=== PATIENT | female | born 1990 | race Two or more races ===

== ENCOUNTER 2024-10-31 17:51 | Observation (INO) | payer MEDICAID, SELFPAY ==
[2024-10-31] VITALS (12 sets, daily range): BP systolic 120–122; BP diastolic 76–77; PULSE 67–83; RESP 16–99; TEMP 36.8; O2SAT 98–100
== END 2024-10-31 19:25 | disposition home or self-care (01) ==
PROVIDERS: Admitting Provider Student in an Organized Health Care Education/Training Program; Visit Provider Student in an Organized Health Care Education/Training Program
DX: Z34.83 Encounter for supervision of other normal pregnancy, third trimester (principal); Z36.89 Encounter for other specified antenatal screening; Z3A.36 36 weeks gestation of pregnancy
CPT/HCPCS: 59025; 59899

== ENCOUNTER 2024-11-01 09:20 | Outpatient (CLI) | payer MEDICAID, SELFPAY ==
[2024-11-01] VITALS (10 sets, daily range): BP systolic 121; BP diastolic 77; PULSE 57–78; RESP 18–99; TEMP 36.7; O2SAT 93–100; BMI 32.8
--- NOTE | 2024-11-01 09:32 | XR_ITS ---
Examination: Biophysical profile, ultrasound Date and time of exam: November 01, 2019 5:10 AM INDICATIONS: Diagnosis maternal obesity, diagnosis poor reproductive history Technique: Multiple transabdominal sonographic images of the pelvis abdomen obtained. Attention is directed to the breathing movement, gross body movement, amniotic fluid volume and tone. Findings: Amniotic fluid index 10.6 cm Total biophysical profile is 8 of 8. breathing movement is 2. Gross body movement is 2. tone is 2. Qualitative amniotic fluid volume is 2 Impression: Biophysical profile is 8 of 8.
== END 2024-11-01 10:35 | disposition home or self-care (01) ==
LOC: S4S1 09:22 → S4SX 09:23
PROVIDERS: PCP Family Medicine; Referring Provider Student in an Organized Health Care Education/Training Program; Visit Provider Student in an Organized Health Care Education/Training Program
DX: O99.213 Obesity complicating pregnancy, third trimester (principal); E66.9 Obesity, unspecified; Z3A.36 36 weeks gestation of pregnancy
CPT/HCPCS: 59025; 76819

== ENCOUNTER 2024-11-18 10:57 | Outpatient (RCR) | payer MEDICAID, SELFPAY ==
--- NOTE | 2024-09-30 15:35 | XR_ITS ---
Examination: Biophysical profile, ultrasound Date and time of exam: September 30, 2024 1540 hours INDICATIONS: History C-sections Technique: Multiple transabdominal sonographic images of the pelvis abdomen obtained. Attention is directed to the breathing movement, gross body movement, amniotic fluid volume and tone. Findings: Amniotic fluid index 9.8 cm Total biophysical profile is 8 of 8. breathing movement is 2. Gross body movement is 2. tone is 2. Qualitative amniotic fluid volume is 2 Impression: Biophysical profile is 8 of 8.
[2024-09-30 16:18] VITALS: BP 108/58; PULSE 68; RESP 16; TEMP 36.7
--- NOTE | 2024-10-03 15:32 | XR_ITS ---
Examination: Biophysical profile, ultrasound Date and time of exam: October 03, 2024 1536 hours INDICATIONS: History Technique: Multiple transabdominal sonographic images of the pelvis abdomen obtained. Attention is directed to the breathing movement, gross body movement, amniotic fluid volume and tone. Findings: Amniotic fluid index 6.4 cm Total biophysical profile is 8 of 8. breathing movement is 2. Gross body movement is 2. tone is 2. Qualitative amniotic fluid volume is 2 Impression: Biophysical profile is 8 of 8.
[2024-10-03 16:05] VITALS: BP 116/59; PULSE 74; RESP 16; TEMP 36.9
--- NOTE | 2024-10-10 15:36 | XR_ITS ---
Examination: Biophysical profile, ultrasound Date and time of exam: October 10, 2024 1543 hours INDICATIONS: History C-sections, history low amniotic fluid index Technique: Multiple transabdominal sonographic images of the pelvis abdomen obtained. Attention is directed to the breathing movement, gross body movement, amniotic fluid volume and tone. Findings: Amniotic fluid index 6.4 cm Total biophysical profile is 8 of 8. breathing movement is 2. Gross body movement is 2. tone is 2. Qualitative amniotic fluid volume is 2 Impression: Biophysical profile is 8 of 8.
[2024-10-10 16:46] VITALS: BP 100/58; PULSE 74; RESP 16; TEMP 36.8
--- NOTE | 2024-10-14 15:51 | XR_ITS ---
Examination: Biophysical profile, ultrasound Date and time of exam: October 14, 2024 1542 hours INDICATIONS: History C-sections, history low amniotic fluid Technique: Multiple transabdominal sonographic images of the pelvis abdomen obtained. Attention is directed to the breathing movement, gross body movement, amniotic fluid volume and tone. Findings: Amniotic fluid index 10.5 cm Total biophysical profile is 8 of 8. breathing movement is 2. Gross body movement is 2. tone is 2. Qualitative amniotic fluid volume is 2 Impression: Biophysical profile is 8 of 8.
[2024-10-14 16:23] VITALS: BP 118/70; PULSE 75; RESP 16; TEMP 36.8
--- NOTE | 2024-10-17 15:53 | XR_ITS ---
Examination: Biophysical profile, ultrasound Date and time of exam: October 17, 2024 1556 hours INDICATIONS: History C-sections, history low amniotic fluid index Technique: Multiple transabdominal sonographic images of the pelvis abdomen obtained. Attention is directed to the breathing movement, gross body movement, amniotic fluid volume and tone. Findings: Amniotic fluid index 9.2 cm Total biophysical profile is 8 of 8. breathing movement is 2. Gross body movement is 2. tone is 2. Qualitative amniotic fluid volume is 2 Impression: Biophysical profile is 8 of 8.
[2024-10-17 16:30] VITALS: BP 121/68; PULSE 70; RESP 15; TEMP 36.8
--- NOTE | 2024-10-24 15:38 | XR_ITS ---
Examination: Biophysical profile, ultrasound Date and time of exam: October 24, 2024 1552 hours INDICATIONS: History C-sections, history low amniotic fluid index Technique: Multiple transabdominal sonographic images of the pelvis abdomen obtained. Attention is directed to the breathing movement, gross body movement, amniotic fluid volume and tone. Findings: Amniotic fluid index 7.8 cm Total biophysical profile is 8 of 8. breathing movement is 2. Gross body movement is 2. tone is 2. Qualitative amniotic fluid volume is 2 Impression: Biophysical profile is 8 of 8.
[2024-10-24 17:12] VITALS: BP 107/60; PULSE 77; RESP 16; TEMP 36.9
--- NOTE | 2024-10-28 15:40 | XR_ITS ---
Examination: Biophysical profile, ultrasound Date and time of exam: October 28, 2024 1604 hours INDICATIONS: History C-sections x5, history low amniotic fluid index Technique: Multiple transabdominal sonographic images of the pelvis abdomen obtained. Attention is directed to the breathing movement, gross body movement, amniotic fluid volume and tone. Findings: Amniotic fluid index 8.0 cm Total biophysical profile is 8 of 8. breathing movement is 2. Gross body movement is 2. tone is 2. Qualitative amniotic fluid volume is 2 Impression: Biophysical profile is 8 of 8.
[2024-10-28 16:38] VITALS: BP 123/73; PULSE 74; RESP 16; TEMP 36.7
--- NOTE | 2024-10-31 15:23 | XR_ITS ---
Examination: Biophysical profile, ultrasound Date and time of exam: October 31, 2024 1528 hours INDICATIONS: Diagnosis poor reproductive history Technique: Multiple transabdominal sonographic images of the pelvis abdomen obtained. Attention is directed to the breathing movement, gross body movement, amniotic fluid volume and tone. Findings: Amniotic fluid index 10.1 cm Total biophysical profile is 8 of 8. breathing movement is 2. Gross body movement is 2. tone is 2. Qualitative amniotic fluid volume is 2 Impression: Biophysical profile is 8 of 8.
[2024-10-31 17:45] VITALS: BP 133/74; PULSE 73; RESP 18; TEMP 37
--- NOTE | 2024-11-04 15:54 | XR_ITS ---
Examination: Biophysical profile, ultrasound Date and time of exam: November 04, 2024 1617 hours INDICATIONS: History C-sections x5, diagnosis maternal obesity, diagnosis poor reproductive history Technique: Multiple transabdominal sonographic images of the pelvis abdomen obtained. Attention is directed to the breathing movement, gross body movement, amniotic fluid volume and tone. Findings: Amniotic fluid index 5.8 cm Total biophysical profile is 8 of 8. breathing movement is 2. Gross body movement is 2. tone is 2. Qualitative amniotic fluid volume is 2 Impression: Biophysical profile is 8 of 8.
[2024-11-04 18:48] VITALS: BP 127/74; PULSE 62; RESP 18; TEMP 36.9
--- NOTE | 2024-11-07 16:04 | XR_ITS ---
Examination: Biophysical profile, ultrasound Date and time of exam: November 07, 2024 1629 hours INDICATIONS: Diagnosis poor reproductive obstetrical history, diagnosis maternal obesity, C-sections x5 Technique: Multiple transabdominal sonographic images of the pelvis abdomen obtained. Attention is directed to the breathing movement, gross body movement, amniotic fluid volume and tone. Findings: Amniotic fluid index 6.0 cm Total biophysical profile is 8 of 8. breathing movement is 2. Gross body movement is 2. tone is 2. Qualitative amniotic fluid volume is 2 Impression: Biophysical profile is 8 of 8.
[2024-11-07 17:40] VITALS: BP 121/76; PULSE 69; RESP 18; TEMP 37
--- NOTE | 2024-11-11 15:42 | XR_ITS ---
Examination: Biophysical profile, ultrasound Date and time of exam: November 11, 2024 1546 hours INDICATIONS: history x5, diagnosis poor reproductive obstetrical history, diagnosis maternal obesity Technique: Multiple transabdominal sonographic images of the pelvis abdomen obtained. Attention is directed to the breathing movement, gross body movement, amniotic fluid volume and tone. Findings: Amniotic fluid index 7.1 cm Total biophysical profile is 8 of 8. breathing movement is 2. Gross body movement is 2. tone is 2. Qualitative amniotic fluid volume is 2 Impression: Biophysical profile is 8 of 8.
[2024-11-11 17:00] VITALS: BP 121/66; PULSE 62; RESP 17
--- NOTE | 2024-11-14 15:50 | XR_ITS ---
Examination: Biophysical profile, ultrasound Date and time of exam: November 14, 2024 1553 hours INDICATIONS: History C-sections x5, diagnosis poor reproductive obstetrical history, diagnosis maternal obesity Technique: Multiple transabdominal sonographic images of the pelvis abdomen obtained. Attention is directed to the breathing movement, gross body movement, amniotic fluid volume and tone. Findings: Amniotic fluid index 7.0 cm Total biophysical profile is 8 of 8. breathing movement is 2. Gross body movement is 2. tone is 2. Qualitative amniotic fluid volume is 2 Impression: Biophysical profile is 8 of 8.
[2024-11-14 17:11] VITALS: BP 134/82; PULSE 69; RESP 17; TEMP 36.7
--- NOTE | 2024-11-18 11:10 | XR_ITS ---
Examination: Biophysical profile, ultrasound Date and time of exam: November 18, 2024 1130 hours INDICATIONS: history x5, diagnosis poor reproductive obstetrical history, diagnosis maternal obesity Technique: Multiple transabdominal sonographic images of the pelvis abdomen obtained. Attention is directed to the breathing movement, gross body movement, amniotic fluid volume and tone. Findings: Amniotic fluid index 11.6 cm Total biophysical profile is 8 of 8. breathing movement is 2. Gross body movement is 2. tone is 2. Qualitative amniotic fluid volume is 2 Impression: Biophysical profile is 8 of 8.
[2024-11-18 13:28] VITALS: BP 131/77; PULSE 60; RESP 16
== END 2024-11-18 23:59 | disposition home or self-care (01) ==
LOC: S4S1 10:57
PROVIDERS: Referring Provider Obstetrics & Gynecology; Visit Provider Obstetrics & Gynecology
DX: O09.293 Supervision of pregnancy with other poor reproductive or obstetric history, third trimester (principal); Z3A.39 39 weeks gestation of pregnancy
CPT/HCPCS: 59025; 76819

== ENCOUNTER 2024-11-19 05:08 | Inpatient (IN) | payer MEDICAID, SELFPAY ==
[2024-11-19] VITALS (15 sets, daily range): BP systolic 106–129; BP diastolic 58–83; PULSE 51–72; RESP 16–18; TEMP 36.2–37.2; O2SAT 96–100; BMI 33.4
[2024-11-19] MEDS: RINGERS LACTATED 1000 ML 1,000 ML 100 ML IV (05:58)
[2024-11-19 06:32] LABS: Basophils % (Auto) 1 % (0-2.5); Eosinophils # (Auto) 0.2 Thou/mm3 (0.0-0.5); Eosinophils % (Auto) 2 % (0-10); Hematocrit 37.6 % (36.0-46.0); Immature Granulocytes % (Auto) 0 % (0-0); Immature Granulocytes Auto 0.01 Thou/mm3 (0.00-0.00); Lymphocytes # (Auto) 1.5 Thou/mm3 (1.0-4.8); Lymphocytes % (Auto) 21 % (10-50); Mean Corpuscular HGB Conc 34.6 g/dl (31.0-37.0); Mean Corpuscular Hemoglobin 29.7 pg (25.0-35.0); Mean Corpuscular Volume 86 fL (80-100); Monocytes # (Auto) 0.6 Thou/mm3 (0.0-0.8); Monocytes % (Auto) 8 % (0-12); Neutrophils # (Auto) 4.7 Thou/mm3 (1.8-7.7); Neutrophils % (Auto) 68 % (37-80); Nucleated Red Blood Cell % 0 /100 WBC (0); Platelet Count 217 Thou/mm3 (140-440); RDW Standard Deviation 42.5 fL (36.4-46.3); Red Blood Count 4.37 Miln/mm3 (4.00-5.20); White Blood Count 6.9 Thou/mm3 (3.6-11.0)
[2024-11-19 07:09] LABS: Syphilis Nonreactive (Nonreactive)
[2024-11-19] MEDS: FAMOTIDINE INJ 10 MG/ML VIAL 2 ML 20 MG IV (07:14)
[2024-11-19] MEDS: CITRIC ACID/SODIUM CITR 15 ML UDC (BICITRA) 30 ML PO (07:14)
[2024-11-19] MEDS: ceFAZolin/D5W 2 GM IV 2 GM/100 ML BAG IV (07:14)
--- NOTE | 2024-11-19 07:36 | PD.LDHP ---
Documentation for date of: 11/19/24 OB Labor/Induct. HPI History of Present Illness : 6 Living children: 4 History of Abortions: Spontaneous and Elective: 1 History of sections: Yes Date of last menstrual period: 02/13/24 Gestational age based on last menstrual period: 38 History of present illness: 34-year-old -0-1-4 at 39 weeks 2 days, TREVON 11/24/2024 presents for scheduled repeat low-transverse section. For Current is significant for gestational diabetes. Patient also is hypothyroid on 150 mcg of levothyroxine Patient desires surgical sterilization as well Denies any other complaints today All records were reviewed as scanned in History of Present Adequate Care: Yes Review of Systems Review of Systems Systems Reviewed: All systems reviewed, normal except as documented Past Medical History Surgical History SURGICAL: Positive Section Meds Home Medications and Allergies Home Medications ?Medication ?Instructions ?Recorded ?Confirmed ?Type levothyroxine 150 mcg tablet 150 mcg PO QDAY 09/22/23 10/31/24 History (Synthroid) vitamin-ferrous sulfate 1 tab PO QDAY 10/31/24 10/31/24 History 27 mg iron-folic acid 0.8 mg tablet Allergies Allergy/AdvReac Type Severity Reaction Status Date / Time No Known Allergies Allergy Unverified 11/19/24 07:08 OB Exam Physical Exam Vital signs: Temp Pulse BP 97.8 F 62 116/75 11/19/24 06:15 11/19/24 05:54 11/19/24 05:54 Constitutional Constitutional: no acute distress Routine HEENT Exam Head: Present normocephalic and atraumatic Eye: Present EOMI and PERRL ENT: Present mucous membranes moist Routine Neck Exam Neck: Present supple and trachea midline Routine Cardiovascular Exam Cardiovascular: Present RRR Routine Abdominal Exam Abdominal: Present soft and normoactive bowel sounds Detailed Labor and Delivery Exam Dilation (cm): 0 Effacement (%): 50 Baseline heart rate: 145 monitor accelerations: 15x15 monitor decelerations: None Routine Extremities Exam Extremities: Present full ROM Routine Skin Exam Skin: Present intact, dry and warm Routine Neurological Exam Neurological: Present alert, oriented X3 and CN II-XII intact Routine Psychiatric Exam Psychiatric: Present normal affect and normal thought process OB Results Labs 11/19/24 05:30 Labs: Short CBC 11/19/24 Range/Units 05:30 WBC 6.9 (3.6-11.0) Thou/mm3 Hgb 13.0 (12.0-16.0) g/dL Hct 37.6 (36.0-46.0) % Plt Count 217 (140-440) Thou/mm3 OB Assessment & Plan Assessment and Plan (1) delivery delivered: Status: Acute Assessment and plan: Admit to inpatient status for repeat low transverse IV access, CBC, type and screen, LR at 125, RPR, COVID-19 test GBS negative Ancef 2 g prior to surgery start Cordova catheter to drainage SCDs for DVT prophylaxis Anesthesia to preop for spinal anesthesia Scheduled for surgery. (2) Hypothyroidism: Status: Acute (3) Status post repeat low transverse section: Status: Acute (4) Gestational diabetes mellitus: Status: Acute
--- NOTE | 2024-11-19 08:37 | PD.GYNPROC ---
Operative Note - BEVEL POLISHER Procedure Date of procedure: 11/19/24 Procedure Performed: Repeat low-transverse section #5 Bilateral salpingectomy for surgical sterilization Indication: 34-year-old G6, P4 at 39 weeks 2 days with previous x 4 Desired surgical sterilization Hypothyroidism on levothyroxine Gestational diabetes well-controlled Anesthesia type: Spinal Procedure description: Informed consent was obtained and the patient was brought to the operating room after identity verification with double identifiers. With the patient in the supine position under spinal anesthesia, the abdomen and perineum were prepped in standard sterile fashion and a Cordova catheter was placed for continuous drainage. After applying sterile drapes and confirming anesthesia adequacy, a Pfannenstiel incision was made through the subcutaneous tissue to the rectus fascia. The fascia was incised bilaterally off the midline, and the rectus muscles were gently to expose and bluntly enter the peritoneum. The peritoneal opening was extended and an Parker O-ring retractor was placed to improve visualization. A low transverse Liborio Davidson uterine incision was made in the lower segment, carefully avoiding the bladder. Uterine entry was achieved bluntly, and the opening was extended to allow rupture of the amniotic membranes and release of clear amniotic fluid. The fetus, in vertex position, was delivered after gently elevating the head and releasing a single nuchal cord loop; the remainder of the body was delivered with gentle fundal pressure. The umbilical cord was doubly clamped, divided, and the infant was transferred to the team, with cord gas samples obtained subsequently. The placenta was delivered by gentle traction, and the uterine cavity was thoroughly cleaned of blood, debris, and membranes. The hysterotomy was closed in two layers using 1 Monocryl suture. The first layer approximated the uterine muscle in a running locked fashion, while the second imbricated the myometrium and serosa. After confirming hemostasis at the hysterotomy site, attention was directed to bilateral salpingectomies. Each fallopian tube was elevated with a Julio César clamp, the mesosalpinx exposed, and the salpingectomy was performed using the Enaseal vessel sealing device, with both specimens sent for pathological examination. Hemostasis at the salpingectomy sites was confirmed. The Parker retractor was then removed, and the peritoneal edges and rectus muscles were reapproximated. The rectus fascia was closed in a running fashion using 0 Vicryl suture. Following copious irrigation of the subcutaneous tissue with warm normal saline and cauterization of bleeding points, the subcutaneous fat was closed with 3-0 Vicryl. The skin was closed using the INSORB technique in a subcuticular manner. The incision was subsequently cleaned and dressed with Dermabond Prenio followed by a pressure dressing. The patient was then undraped, her abdomen and back were cleaned, and she was transferred to the recovery room in stable and awake condition. The procedure was well tolerated without complications, and all instrument, sponge, and laparotomy counts were correct. Estimated blood loss (ml): 750 Complications: none Surgical staff Operation Date: 11/19/24 07:45 Case Staff FINISH SAW OPERATOR: Holli Mcdonald RN First Assistant: Rigoberto Greenwood Diagnosis Discharge Diagnosis (1) Gestational diabetes mellitus: Status: Acute (2) delivery delivered: Status: Acute (3) Hypothyroidism: Status: Acute (4) Status post repeat low transverse section: Status: Acute Problem List Completed Was Problem List Reviewed/Reconciled?: Yes
--- NOTE | 2024-11-19 08:44 | PD.LDDELS ---
Data ([facility]) Data Hx Section: Yes : 6 Term: 4 : 0 : 1 Delivery Data ([facility]) Delivery Data Delivered by: Paul Molina
[2024-11-19] MEDS: ACETAMINOPHEN IVPB 1,000 MG/100 ML VIAL 250 MG IV ×2 (09:30→20:03)
[2024-11-19] MEDS: OXYTOCIN in NS 20 units 20 UNIT/1,000 ML BAG 125 UNIT IV (14:46)
[2024-11-20 00:15] VITALS: BP 112/72; PULSE 58; RESP 18; TEMP 36.8; O2SAT 97
[2024-11-20 03:45] VITALS: BP 112/70; PULSE 67; RESP 16; TEMP 36.7; O2SAT 97
[2024-11-20] MEDS: IBUPROFEN TAB 400 MG TABLET 800 MG PO (03:54)
[2024-11-20 05:47] LABS: Basophils % (Auto) 0 % (0-2.5); Eosinophils # (Auto) 0.1 Thou/mm3 (0.0-0.5); Eosinophils % (Auto) 1 % (0-10); Hematocrit 35.1 % (36.0-46.0); Immature Granulocytes % (Auto) 0 % (0-0); Immature Granulocytes Auto 0.04 Thou/mm3 (0.00-0.00); Lymphocytes # (Auto) 1.7 Thou/mm3 (1.0-4.8); Lymphocytes % (Auto) 13 % (10-50); Mean Corpuscular HGB Conc 34.2 g/dl (31.0-37.0); Mean Corpuscular Hemoglobin 29.6 pg (25.0-35.0); Mean Corpuscular Volume 87 fL (80-100); Monocytes # (Auto) 0.9 Thou/mm3 (0.0-0.8); Monocytes % (Auto) 7 % (0-12); Neutrophils # (Auto) 10.6 Thou/mm3 (1.8-7.7); Neutrophils % (Auto) 80 % (37-80); Nucleated Red Blood Cell % 0 /100 WBC (0); Platelet Count 202 Thou/mm3 (140-440); RDW Standard Deviation 42.7 fL (36.4-46.3); Red Blood Count 4.06 Miln/mm3 (4.00-5.20); White Blood Count 13.3 Thou/mm3 (3.6-11.0)
--- NOTE | 2024-11-20 07:01 | OBDSUM_ITS ---
Data ([facility]) Data Hx Section: Yes : 6 Para: 4 Term: 4 : 0 : 1 Delivery Data ([facility]) Labor Data ROM Date: 11/19/24 ROM Time: 08:10 Rupture Type: AROM Amniotic Fluid: Clear Delivery Data Labor Onset Stage 1 Date: 11/19/24 Labor Onset Stage 1 Time: 08:11 Labor Onset Stage 2 Date: 11/19/24 Labor Onset Stage 2 Time: 08:11 Delivery Date: 11/19/24 Delivery Time: 08:11 Placenta Delivery Date: 11/19/24 Placenta Delivery Time: 08:12 Delivered by: Keo Marie Delivery nurse: Brandee Mckinnon Other staff at delivery: Nursery Nurse Other staff at delivery: Nurse Other staff at delivery: Hogshead Filler Other staff at delivery: MICHELL Other staff at delivery: Harmony Jensen Other staff at delivery: Ambar Starkey Other staff at delivery: ILEANA Other staff at delivery: LASYA Delivery Method Delivery: Delivery Type: Repeat Anesthesia Type Primary Anesthesia: Spinal Placenta Placenta Delivery: Manual Umbilical Cord Umbilical Vessels: 3 Nuchal Cord: x1 Loosely [place] Data ([facility]) Data Gender: Male Weight Grams: 3170 1 Minute Total: 8 5 Minute Total: 9
--- NOTE | 2024-11-20 08:41 | PD.LDPPPRG ---
Subjective Subjective Interval history: 34-year-old para 6 status post repeat low-transverse admitted for 24 hours now after the . Has been doing well. Ambulating, tolerating oral diet without nausea vomiting. No fever, no vaginal bleeding Exam Vital Signs Temp Pulse Resp BP Pulse Ox O2 Del Method 98.1 F 67 16 112/70 97 Room Air 11/20/24 03:45 11/20/24 03:45 11/20/24 03:45 11/20/24 03:45 11/20/24 03:45 11/20/24 03:45 Constitutional Constitutional: no acute distress Routine HEENT Exam Head: Present normocephalic and atraumatic Eye: Present EOMI and PERRL ENT: Present mucous membranes moist Routine Neck Exam Neck: Present supple and trachea midline Routine Respiratory Exam Respiratory: Present chest non-tender, lungs clear, normal breath sounds and no resp distress Routine Cardiovascular Exam Cardiovascular: Present RRR Routine Abdominal Exam Abdominal: Present soft and normoactive bowel sounds Routine Extremities Exam Extremities: Present full ROM Routine Skin Exam Skin: Present intact, dry and warm Routine Neurological Exam Neurological: Present alert, oriented X3 and CN II-XII intact Routine Psychiatric Exam Psychiatric: Present normal affect and normal thought process Objective Labs 11/20/24 04:08 Labs: Laboratory Results - last 24 hr 11/19/24 11/20/24 05:30 04:08 WBC 13.3 H D RBC 4.06 Hgb 12.0 Hct 35.1 L MCV 87 MCH 29.6 MCHC 34.2 RDW Std Deviation 42.7 Plt Count 202 Neut % (Auto) 80 Lymph % (Auto) 13 [place] % (Auto) 7 Eos % (Auto) 1 Baso % (Auto) 0 Neut # (Auto) 10.6 H Lymph # (Auto) 1.7 [place] # (Auto) 0.9 H Eos # (Auto) 0.1 Baso # (Auto) 0.0 Immature Gran # (Auto) 0.04 H Absolute Nucleated RBC 0.00 Immature Gran % 0 Nucleated RBC % 0 Blood Type A Positive Antibody Screen NEGATIVE Crossmatch See Detail Blood Bank Wristband ID Yes Assessment & Plan Problem List (1) Gestational diabetes mellitus: Status: Acute (2) delivery delivered: Status: Acute (3) Hypothyroidism: Status: Acute (4) Status post repeat low transverse section: Status: Acute Assessment Comment Assessment comment: 34-year-old para 6 status post repeat [place] transverse , postop day 1 Vital signs stable Meeting all postop milestones Plan Comment Plan Comment: Continue postop care Anticipate discharge tomorrow Time Spent With Patient Time: Total time spent is greater than 50% in coordination of care (as documented) at patient's floor/unit and/or counseling patient:
[2024-11-20 09:00] VITALS: BP 112/70; PULSE 80; RESP 20; TEMP 36.8; O2SAT 96
[2024-11-20] MEDS: HYDROcodone/APAP 5/325 TABLET 1 TAB PO ×3 (09:04→20:38)
[2024-11-20] MEDS: DOCUSATE SOD 100 MG CAPSULE PO (09:05)
[2024-11-20 17:30] VITALS: BP 108/65; PULSE 74; RESP 20; TEMP 36.6; O2SAT 97
[2024-11-20 20:30] VITALS: BP 121/79; PULSE 70; RESP 16; TEMP 36.7; O2SAT 98
[2024-11-21] MEDS: IBUPROFEN TAB 400 MG TABLET 800 MG PO ×2 (00:01→08:07)
[2024-11-21 03:50] VITALS: BP 117/79; PULSE 66; RESP 16; TEMP 36.6; O2SAT 98
[2024-11-21] MEDS: DOCUSATE SOD 100 MG CAPSULE PO (08:07)
[2024-11-21] MEDS: DIPHTH,PERTUSS(ACELL),TET VAC 0.5 ML VIAL IMi (08:08)
--- NOTE | 2024-11-21 08:34 | ESDS_ITS ---
DS: Providers Provider Date of admission: 11/19/24 05:08 Primary care physician: Physician No Primary/Family Admitting Provider: Keo Marie MD Attending Provider on Admission: Hollie Lerner MD Consults: 11/19/24 09:23 Referral Routine Comment: Attending Provider on DC: Hollie Lerner MD Discharging Provider: Hollie Lerner MD DS: Diagnosis Problem List Completed Was Problem List Reviewed/Reconciled?: Yes Summary/Hosp Course Brief History: 34-year-old , status post repeat low-transverse at 39 weeks 2 days, has been admitted for 2 days. Has met all postop milestones including passing gas, ambulation, tolerating oral diet. Pain is well-controlled Peripartum Data Procedures: Procedures Operation Date: 11/19/24 07:45 Actual Procedure Side Surgeon p w/tubal OB Not Applicable Keo Marie MD Status at Discharge Cognitive/behavioral status at discharge: Stable Time Spent with Patient Time attestation: Total time spent providing and/or coordinating discharge services: Exam Vital Signs Temp Pulse Resp BP Pulse Ox O2 Del Method 97.8 F 66 16 117/79 98 Room Air 11/21/24 03:50 11/21/24 03:50 11/21/24 03:50 11/21/24 03:50 11/21/24 03:50 11/21/24 03:50 Constitutional Constitutional: no acute distress Routine HEENT Exam Head: Present normocephalic and atraumatic Eye: Present EOMI and PERRL ENT: Present mucous membranes moist Routine Neck Exam Neck: Present supple and trachea midline Routine Respiratory Exam Respiratory: Present chest non-tender, lungs clear, normal breath sounds and no resp distress Routine Cardiovascular Exam Cardiovascular: Present RRR Routine Abdominal Exam Abdominal: Present soft and normoactive bowel sounds Routine Extremities Exam Extremities: Present full ROM Routine Skin Exam Skin: Present intact, dry and warm Routine Neurological Exam Neurological: Present alert, oriented X3 and CN II-XII intact Routine Psychiatric Exam Psychiatric: Present normal affect and normal thought process Discharge Plan Plan Patient Disposition: HOME (Self Care) Patient condition on transfer: Stable Prescriptions/Referrals Prescriptions/Med Rec: New hydrocodone-acetaminophen 5-325 mg Tablet 1 tab PO Q6HR MDD 4 PRN (Reason: Patient rated pain 9 to 10) 5 Days Qty: 20 0RF docusate sodium 100 mg Capsule 100 mg PO QDAY 30 Days Qty: 30 0RF ibuprofen 400 mg Tablet 800 mg PO Q8HR PRN (Reason: Pain Scale 4-6 (Moderate) 10 Days Qty: 30 0RF Continued levothyroxine [Synthroid] 150 mcg Tablet 150 mcg PO QDAY vit-ferrous sulfat-FA 27 mg iron- 0.8 mg Tablet 1 tab PO QDAY Referrals: Keo Marie MD [Physician] - No Primary/Family,Physician [Primary Care Provider] - Patient/Caregiver Discharge Instructions Meds to Beds: Yes Discharge Activity: activity as tolerated Education Materials: After a , C Section Dc Print Language: Slovenian Stand Alone Forms: Debbie Award Info., Patient Portal Info Letter, DC from Surgery Planned Discharge Date 11/21/24
[2024-11-21 10:13] VITALS: BP 123/84; PULSE 79; RESP 18; TEMP 36.8; O2SAT 98
--- NOTE | 2024-11-21 10:33 | PC.SS ---
MOLDER MACHINE TENDER conducted bedside contact with the patient to address nursing referral indicating patient possessed a history of anxiety.? MOLDER MACHINE TENDER introduced self and role.? MOLDER MACHINE TENDER shared with patient basis of referral.? Patient confirmed history of anxiety.? Patient stated that current level of anxiety is not impairing daily functioning.? Patient is not currently prescribed psychotropic medication nor is patient participating with individual counseling.? Patient denies current intent/plan of SI/HI.? Infant, Ko; is the patient?s 5th child.? Other children are ages 14, 9, 7, and 1 years old.? Infant delivered via .? FOB, Inderjit Hamm; is currently in [place].? Patient is aligned with WIC and SNAP.? Patient is not receiving TANF.? Patient denies history of alcohol/drug abuse.? Patient denies CWS intervention.? Patient denies episodes of domestic violence.? OB services provided by Dr. Marie.? Patient consistent with OB appointments.? Patient plans on breast feeding the .? Patient has access to appropriate supplies and equipment; to include a car seat.? Family will provide transportation upon discharge.? Patient describes possessing support system consisting of sister and extended family.? MOLDER MACHINE TENDER provided the patient with community resources to include Parenting Network, Crisis Line and Warm Line.? No further intervention required at this time, rn social work will be available to address any further concerns.? MOLDER MACHINE TENDER updated bedside nurse.?
[2024-11-21 11:20] VITALS: BP 121/79; PULSE 68; RESP 16; TEMP 36.5; O2SAT 98
== END 2024-11-21 15:20 | disposition home or self-care (01) | DRG 539 ==
LOC: S4SX 07:51 → S4NX 08:20
PROVIDERS: Admitting Provider Obstetrics & Gynecology; Visit Provider Student in an Organized Health Care Education/Training Program
PROC: 0UL70ZZ Occlusion of Bilateral Fallopian Tubes, Open Approach (ICD-10-PCS; CPT 59514; 2024-11-19 07:30)
DX: O34.211 Maternal care for low transverse scar from previous cesarean delivery (principal); O24.429 Gestational diabetes mellitus in childbirth, unspecified control; O99.284 Endocrine, nutritional and metabolic diseases complicating childbirth; E03.9 Hypothyroidism, unspecified; O69.81X0 Labor and delivery complicated by cord around neck, without compression, not applicable or unspecified; Z37.0 Single live birth; Z3A.39 39 weeks gestation of pregnancy; Z30.2 Encounter for sterilization; Z79.890 Hormone replacement therapy
CPT/HCPCS: 36415; 59409; 85025; 86780; 86850; 86900; 86901; 86923; 90715; 94762; A4649; J0131; J0689; J1100; J2250; J2274; J2371; J2405; J2590; J3010; J3490; J7120; A9270; J2270

== ENCOUNTER 2024-11-24 11:18 | Emergency (ER) | payer MEDICAID, SELFPAY ==
[2024-11-24 11:19] VITALS: BMI 32.3
[2024-11-24 11:26] VITALS: BP 128/83; PULSE 76; RESP 16; TEMP 36.8; O2SAT 98; BMI 32.3
--- NOTE | 2024-11-24 12:21 | XR_ITS ---
Examination: CT abdomen with intravenous contrast CT pelvis with intravenous contrast 2-D coronal reconstructions 2-D sagittal reconstructions Date and time of exam:November 24, 2024 1303 hrs. Indications: Status post November 19, 2024 with incisional bleeding, coughing beginning 2 days ago. CTDI: vol (mGy) 10.2 DLP: (mGycm) 552 Technique: Multiple axial sections of the abdomen and pelvis have been obtained. 64 slice high-resolution scanner used. 3 mm axial sections have been obtained, post intravenous injection 60 cc [id number] 2-D sagittal, coronal reconstructions obtained. Low dose protocols were performed. One or more of the following dose reduction techniques were used; automated exposure control, adjustment of the mA and/or KV according to patient size, use of iterative reconstruction technique. Findings: Hepatomegaly 19 cm Splenomegaly 13 cm No gallstones No pancreatic or adrenal mass Severely scarred right kidney, no hydronephrosis Aorta normal size No bowel obstruction Normal appendix enlarged uterus with thickened endometrial stripe in the lower uterine segment Mild thickening of the anterior pelvic wall Urinary bladder wall thickening up to 8 mm Postoperative change in the anterior pelvic wall Impression: Hepatosplenomegaly Severely scarred right kidney enlarged uterus, recommend pelvic sonography to exclude retained products of conception Cystitis pattern
--- NOTE | 2024-11-24 12:24 | EDNOTE_ITS ---
<Statement entered by Jackelin Christensen MD - 11/26/24 07:12> As co-signing physician, I was present and available for consult prn. I concur with the plan and care as documented by the midlevel provider. ED Abdominal Pain RME/HPI General Chief Complaint: Abdominal Pain Stated complaint: WOUND OPENED, SURG ON 11/19/24 Time seen by provider: 11/24/24 11:36 Arrival date/time: 11/24/24 11:18 This is a 34-year-old female who presents to the emergency department with complaints of bleeding and mild pain to site. Patient reports that on November 19 she had a done. She does report that she noticed some moisture at the site and noticed that it was serosanguineous fluid that began yesterday afternoon. She does report she had a mild upper respiratory infection which has been causing her to cough intermittently possibly caused her to have some bleeding at the site. Patient denies any fever no chills no rigors. No other symptoms. Does have a follow-up with her PCP [facility] Dr. Lerner on NOV 28. Source: patient Limitations: no limitations Related Data Home Medications ?Medication ?Instructions ?Recorded ?Confirmed levothyroxine 150 mcg tablet 150 mcg PO QDAY 09/22/23 10/31/24 (Synthroid) vitamin-ferrous sulfate 1 tab PO QDAY 5 10/31/24 27 mg iron-folic acid 0.8 mg tablet Previous Rx's ?Medication ?Instructions ?Recorded acetaminophen 300 mg-codeine 15 mg 1 tab PO Q12H PRN p ain #14 tabs 11/21/24 tablet docusate sodium 100 mg capsule 100 mg PO QDAY 30 days #30 caps 11/21/24 hydrocodone 5 mg-acetaminophen 325 1 tab PO Q6HR PRN P atient rated 11/21/24 mg tablet pain 9 to 10 5 days #20 tabs ibuprofen 400 mg tablet 800 mg (2 x 400 mg) PO Q8HR PRN 11/21/24 Pain Scale 4-6 (Moderate 10 days #30 tabs amoxicillin 875 mg-potassium 1 tab PO BID #14 tabs 07/10 clavulanate 125 mg tablet Allergies Allergy/AdvReac Type Severity Reaction Status Date / Time No Known Allergies Allergy Verified 11/24/24 11:21 Review of Systems Review of Systems Systems Reviewed: All systems reviewed, normal except as documented Narrative Review of Systems: Gen: No fever, no chills, no weight loss EYES: No discharge, no visual changes, no pain HEENT: No ear pain, no congestion, no sore throat PULM: No shortness of breath, no cough, no congestion CV: No chest pain, no dyspnea on exertion, no palpitations GI: No nausea, no vomiting, no diarrhea, no pain, no constipation : No frequency, no urgency, no dysuria Musc/skel: No joint pain, no back pain Skin: No rash, reporting bleeding at site Psyc: No hallucinations, no depression Heme/Lymph: No easy bleeding or bruising tendencies Neuro: No weakness, no headache ED Exam General Limitations: Present no limitations General appearance: Present alert and in no apparent distress Head Head exam: Present atraumatic Eye Eye exam: Present normal appearance, PERRL and EOMI ENT ENT exam: Present normal exam, normal oropharynx and mucous membranes moist Neck Neck exam: Present normal inspection, full ROM and trachea midline Chest Chest inspection: Present normal inspection and symmetric chest wall rise Respiratory Respiratory exam: Present normal lung sounds bilaterally Cardiovascular Cardiovascular exam: Present regular rate, normal rhythm and normal heart sounds Abdominal Exam Abdominal exam: Present soft, normal bowel sounds and other (Large transverse C- section scar lower suprapubic. There is no obvious opening or dehiscence. There is some noted serosanguineous fluid. No tender to palpation.); Absent distention, tenderness or guarding Extremities Exam Extremities exam: Present normal inspection and full ROM Back Exam Back exam: Present normal inspection and full ROM Neurological Exam Neurological exam: Present alert, oriented X3 and CN II-XII intact Psychiatric Psychiatric exam: Present normal affect and normal mood Skin Skin exam: Present warm, dry, intact and normal color Course Quality Measures none Orders Category Date Time Status CT Screening NOW Care 11/24/24 12:21 Active Insert IV NOW Care 11/24/24 12:[address] abdomen pelvis w con Stat Exams 11/24/24 12:21 Completed XR chest 2V Stat Exams 11/24/24 12:23 Completed CBC Stat Lab 11/24/24 12:55 Completed CMP [Comprehensive Metabolic Panel] Stat Lab 11/24/24 12:55 Completed HCG Qualitative,Urine Stat Lab 11/24/24 12:40 Completed Promethazine/Dextromethorph [Phenergan Dm Syrup] Med 11/24/24 12:23 Discontinued 5 ml PO X1 ONE Vital Signs Vital signs: Vital Signs Temperature 98.3 F 11/24/24 11:26 Pulse Rate 76 11/24/24 11:26 Respiratory Rate 16 11/24/24 11:26 Blood Pressure 128/83 11/24/24 11:26 Pulse Oximetry (%) 98 11/24/24 11:26 Oxygen Delivery Method Room Air 11/24/24 11:26 Abdominal Pain MDM MDM Narrative MDM Narrative:: This is a 34-year-old female presented to the emergency department for drainage of fluid from her site. She is 4 days postop . Patient had reported she was having cough due to a upper respiratory infection and was worried that she had some mild dehiscence. I did look at her area I cannot find any open section. There is some mild serosanguineous fluid. No signs of infection. Did place a call out to Dr. Lerner who is her [employer], case discussed recommends a CT to rule out any abscess, or hematoma. CT was done completed did not demonstrate any abscess formation or hematoma. Demonstrated enlarged uterus which is a common finding status post and delivery. Called back Dr. lerner, discussed results discussed. Patient will be discharged home with a course of antibiotics which is Augmentin, cough suppressant. Patient has an appointment with Dr. Rosario on November 28. Spoke with patient in great detail that if she has any changes in condition please return to the emergency department soon as possible. Patient data External records reviewed:: [facility] previous records Clinical information provided by:: patient Social determinants that could affect healthcare access:: none Patient has the following chronic illnesses:: None How is presenting disease/condition affected by chronic disease/condition?: no chronic disease Evaluation data The following diagnostics were reviewed and interpreted by me:: lab results and radiology exam(s) Lab and/or radiology exams considered but not ordered:: None Interpretation Summary: Examination: PA lateral chest 2 views Technique: Upright PA lateral chest 2 views Exam date and time: November 24, 2024 1236 hrs. Comparison April 27, 2006 Indications: Coughing beginning 5 days ago. Findings: Normal heart size. No lobar pneumonia Tiny granuloma in the right lower lung zone No pulmonary edema Impression: No pneumonia identifie Examination: CT abdomen with intravenous contrast CT pelvis with intravenous contrast 2-D coronal reconstructions 2-D sagittal reconstructions Date and time of exam:November 24, 2024 1303 hrs. Indications: Status post November 19, 2024 with incisional bleeding, coughing beginning 2 days ago. CTDI: vol (mGy) 10.2 DLP: (mGycm) 552 Technique: Multiple axial sections of the abdomen and pelvis have been obtained. 64 slice high-resolution scanner used. 3 mm axial sections have been obtained, post intravenous injection 60 cc [id number] 2-D sagittal, coronal reconstructions obtained. Low dose protocols were performed. One or more of the following dose reduction techniques were used; automated exposure control, adjustment of the mA and/or KV according to patient size, use of iterative reconstruction technique. Findings: Hepatomegaly 19 cm Splenomegaly 13 cm No gallstones No pancreatic or adrenal mass Severely scarred right kidney, no hydronephrosis Aorta normal size No bowel obstruction Normal appendix enlarged uterus with thickened endometrial stripe in the lower uterine segment Mild thickening of the anterior pelvic wall Urinary bladder wall thickening up to 8 mm Postoperative change in the anterior pelvic wall Impression: Hepatosplenomegaly Severely scarred right kidney enlarged uterus, recommend pelvic sonography to exclude retained products of conception Cystitis pattern Medications / Prescriptions Medications or Prescriptions considered but not ordered:: No Medication administrations:: Medication Administration History Discontinued Medications Promethazine HCl/Dextromethorphan (Promethazine/Dm Syrup 5 Ml Dose) 5 ml PO X1 ONE; Protocol Stop: 11/24/24 12:24 Last Admin: 11/24/24 12:46 Dose: 5 ml Documented By: GM All medications administered and effective Consultations Consultation(s) initiated? (list below): No Diagnosis Differential diagnosis abdominal pain: abdominal pain, acute appendicitis, calculus of kidney, constipation, gastroenteritis and other (Wound dehiscence, hematoma, abscess.) Most likely diagnosis given after review of the tests above:: seroma fluid, URI. Admission Indicated Admission indicated?: not indicated Admission Request Was there a request for admission?: No Disposition Plan Disposition Plan: Discharge Discharge Attestation Discharge Attestation: The patient and all family members were given an opportunity to ask questions and understood the discharge instructions. Discharge instructions specifically effects, indications for sooner follow up or return to the emergency department, and the expected course of current diagnosis. Patient condition: Stable Discharge Plan Plan Patient Disposition: HOME (Self Care) Prescriptions/Referrals Prescriptions/Med Rec: New amoxicillin-pot clavulanate 875-125 mg tablet 1 tab PO BID Qty: 14 0RF No Action levothyroxine [Synthroid] 150 mcg Tablet 150 mcg PO QDAY vit-ferrous sulfat-FA 27 mg iron- 0.8 mg Tablet 1 tab PO QDAY hydrocodone-acetaminophen 5-325 mg Tablet 1 tab PO Q6HR MDD 4 PRN (Reason: Patient rated pain 9 to 10) 5 Days Qty: 20 0RF docusate sodium 100 mg Capsule 100 mg PO QDAY 30 Days Qty: 30 0RF ibuprofen 400 mg Tablet 800 mg PO Q8HR PRN (Reason: Pain Scale 4-6 (Moderate) 10 Days Qty: 30 0RF acetaminophen-codeine 300-15 mg tablet 1 tab PO Q12H PRN (Reason: pain) Qty: 14 0RF Problem List Clinical Impression: section wound seroma, , URI (upper respiratory infection) Patient/Caregiver Discharge Instructions Discharge Activity: activity as tolerated Education Materials: After a , ED URI, Viral, No Abx (Adult) Additional Instructions: Please keep bandages clean change. Please start antibiotic as directed. If you do cough please use a pillow for pressure. You have any changes in which you noticed bright blood, open surgical site, fever nausea or vomiting please return to the emergency department as soon as possible. Increase fluid intake, Can take [id number] cough suppressant. Keep your appointment with Dr. Lerner on Nov 28 Print Language: Malian Stand Alone Forms: Debbie Award Info., Patient Portal Info Letter PA/DRUG PURCHASER Supervising Physician PA/DRUG PURCHASER Supervising Physician: Dr. Nguyen
[2024-11-24] MEDS: PROMETHAZINE/DM SYRUP 5 ML DOSE PO (12:46)
[2024-11-24 13:13] LABS: Basophils % (Auto) 0 % (0-2.5); Eosinophils # (Auto) 0.2 Thou/mm3 (0.0-0.5); Eosinophils % (Auto) 3 % (0-10); Hematocrit 39.3 % (36.0-46.0); Hemoglobin 13.3 g/dL (12.0-16.0); Immature Granulocytes % (Auto) 0 % (0-0); Immature Granulocytes Auto 0.03 Thou/mm3 (0.00-0.00); Lymphocytes # (Auto) 0.8 Thou/mm3 (1.0-4.8); Lymphocytes % (Auto) 11 % (10-50); Mean Corpuscular HGB Conc 33.8 g/dl (31.0-37.0); Mean Corpuscular Hemoglobin 29.8 pg (25.0-35.0); Mean Corpuscular Volume 88 fL (80-100); Monocytes # (Auto) 0.4 Thou/mm3 (0.0-0.8); Monocytes % (Auto) 6 % (0-12); Neutrophils # (Auto) 5.6 Thou/mm3 (1.8-7.7); Neutrophils % (Auto) 79 % (37-80); Nucleated Red Blood Cell % 0 /100 WBC (0); Platelet Count 286 Thou/mm3 (140-440); RDW Standard Deviation 44.2 fL (36.4-46.3); Red Blood Count 4.46 Miln/mm3 (4.00-5.20); White Blood Count 7.1 Thou/mm3 (3.6-11.0)
[2024-11-24 13:22] LABS: HCG Qualitative,Urine Positive
[2024-11-24 13:37] LABS: Alanine Aminotransferase 39 U/L (10-49); Albumin, Serum 4.2 gm/dL (3.5-5.0); Albumin/Globulin Ratio 1.6 (1.2-2.2); Alkaline Phosphatase 119 U/L (46-116); Anion Gap 10 (7-16); Aspartate Amino Transferase 21 U/L (0-34); BUN/Creatinine Ratio 23 Ratio (12-20); Bilirubin,Total 0.3 mg/dL (0.3-1.2); Blood Urea Nitrogen 16 mg/dL (9-23); Calcium 9.5 mg/dL (8.3-10.6); Calcium (Corrected) 9.5 mg/dL (8.5-10.1); Carbon Dioxide 25.3 mMol/L (20.0-31.0); Chloride 106 mMol/L (98-107); Creatinine (Component) 0.7 mg/dL (0.6-1.3); Estimated Creatinine Clearance 126.1 mL/min (>60); Globulin 2.6 gm/dL (2.3-3.5); Glucose 132 mg/dL (74-106); Osmolality,Calculated 284 (275-295); Potassium 3.9 mMol/L (3.4-5.1); Sodium 141 mMol/L (136-145); Total Protein 6.8 gm/dL (5.7-8.2); eGFR > 60 See Note
[2024-11-24 14:38] VITALS: BP 132/82; PULSE 63; RESP 16; TEMP 36.8; O2SAT 95
== END 2024-11-24 15:21 | disposition home or self-care (01) ==
LOC: SERX 14:57
PROVIDERS: Nurse Practitioner Primary Care; Emergency Provider Emergency Medicine; PCP Family Medicine
DX: O90.2 Hematoma of obstetric wound (principal); J06.9 Acute upper respiratory infection, unspecified
CPT/HCPCS: 36415; 71046; 74177; 80053; 81025; 85025; 99285; A4649; Q9967; A9270

== ENCOUNTER → 2025-06-30 | Outpatient (CLI) | payer MEDICAID, SELFPAY ==
--- NOTE | 2025-06-30 15:30 | XR_ITS ---
Examination: CT chest, without intravenous contrast. Sagittal and coronal 2-D reconstructions. Exam date and time: June 30, 2025 1525 hours INDICATIONS: Diagnosis solitary pulmonary nodule November 20, 2024 CTDI:vol (mGy) 12.2 DLP: (mGycm) 444 Technique: Multiple 3.0 mm axial sections of the chest to been obtained. Bone and lung density settings are obtained. Sagittal and coronal 2-D reconstructions have been obtained. Low dose protocols were performed. One or more of the following dose reduction techniques were used; automated exposure control, adjustment of the mA and/or KV according to patient size, use of iterative reconstruction technique. Findings: No thoracic aortic aneurysm dilatation Pulmonary artery segments are not enlarged. No paratracheal tracheobronchial or bronchopulmonary adenopathy. 2 mm pulmonary nodule right upper lobe image 108 4 mm pulmonary nodule right upper lobe image 164 No pneumonia or pulmonary edema No visualized liver or splenic lesion No gallstones No pancreatic mass Kidneys partially visualized, moderate scarring right kidney IMPRESSION: Noncalcified pulmonary nodules as above, with this study as baseline recommend continued 6 month follow-up CT chest without contrast
== END | disposition home or self-care (01) ==
DX: R91.8 Other nonspecific abnormal finding of lung field (principal)
CPT/HCPCS: 71250